=== PATIENT | female | born 1995 | race Caucasian/White ===

== ENCOUNTER → 2024-10-11 | Emergency (ER) | payer BC ==
[~2024-10-11] MED LIST: Lidocaine 1% (PF) 30 ML VIAL ONE
== END ==
LOC: CSHERS 12:55
DX: S66.125A Laceration of flexor muscle, fascia and tendon of left ring finger at wrist and hand level, initial encounter (principal); W25.XXXA Contact with sharp glass, initial encounter
CPT/HCPCS: 64450